=== PATIENT | male | born 1995 | race Hispanic/Latino ===

== ENCOUNTER 2018-07-17 19:39 | Emergency (ER) | payer OTHER ==
[2018-07-18] MEDS: ACETAMINOPHEN TAB 650MG DOSE (2X325MG) PO (00:40)
== END 2018-07-18 02:27 | disposition home or self-care (01) ==
LOC: M ED 19:39
DX: R04.0 Epistaxis (principal); R51 Headache; Z87.828 Personal history of other (healed) physical injury and trauma
CPT/HCPCS: 70450

== ENCOUNTER 2018-08-25 12:46 | Inpatient (IN) | payer OTHER ==
[2018-08-25 13:51] LABS: HEMATOCRIT 46.4 % (42.0-52.0); HEMOGLOBIN 15.8 g/dl (13.5-17.5); MEAN CORPUSCULAR HEMOGLOBIN 29.3 pg (27.0-33.0); MEAN CORPUSCULAR HGB CONC 34.1 g/dl (32.0-36.5); MEAN CORPUSCULAR VOLUME 86.1 fl (80.0-96.0); PLATELET COUNT, AUTOMATED 322 10^3/uL (150-450); RED BLOOD COUNT 5.39 10^6/uL (4.30-6.10); RED CELL DISTRIBUTION WIDTH 13.5 % (11.5-14.5); WHITE BLOOD COUNT 9.4 10^3/uL (4.0-10.0)
[2018-08-25 14:27] LABS: ACETAMINOPHEN LEVEL < 2.0 UG/ML (10.0-30.0); ALBUMIN 4.1 GM/DL (3.2-5.2); ALBUMIN/GLOBULIN RATIO 1.11 (1.00-1.93); ALKALINE PHOSPHATASE 78 U/L (45-117); ALT/SGPT 51 U/L (12-78); ANION GAP 7 MEQ/L (8-16); AST/SGOT 20 U/L (7-37); BILIRUBIN,DIRECT 0.1 MG/DL (0.0-0.2); BILIRUBIN,TOTAL 0.4 MG/DL (0.2-1.0); BLOOD UREA NITROGEN 16 MG/DL (7-18); CALCIUM LEVEL 8.9 MG/DL (8.5-10.1); CARBON DIOXIDE LEVEL 28 MEQ/L (21-32); CHLORIDE LEVEL 104 MEQ/L (98-107); CREATININE FOR GFR 1.06 MG/DL (0.70-1.30); ETHYL ALCOHOL (ETHANOL) < 0.003 % (0.000-0.010); GLOMERULAR FILTRATION RATE > 60.0 (>60); GLUCOSE, FASTING 93 MG/DL (70-100); POTASSIUM SERUM 4.3 MEQ/L (3.5-5.1); SALICYLATE LEVEL < 1.7 MG/DL (5.0-30.0); SODIUM LEVEL 139 MEQ/L (136-145); TOTAL PROTEIN 7.8 GM/DL (6.4-8.2)
[2018-08-25 15:39] LABS: AMPHETAMINES LEVEL URINE NEGATIVE (NEGATIVE); BARBITURATES URINE NEGATIVE (NEGATIVE); BENZODIAZEPINES URINE NEGATIVE (NEGATIVE); CANNABINOIDS URINE NEGATIVE (NEGATIVE); COCAINE METABOLITE URINE NEGATIVE (NEGATIVE); METHADONE URINE NEGATIVE (NEGATIVE); OPIATES URINE NEGATIVE (NEGATIVE); PHENCYCLIDINE URINE NEGATIVE (NEGATIVE)
[2018-08-25] MEDS ORDERED: ACETAMINOPHEN TAB 650MG DOSE (2X325MG) PO (19:00)
[2018-08-25] MEDS ORDERED: traZODone 50 MG TAB PO (19:00)
[2018-08-25] MEDS ORDERED: SODIUM CHLORIDE NASAL 0.65% SPRAY BTL (OCEAN) (19:00)
[2018-08-25] MEDS ORDERED: MAALOX 30 ML SUSP *UDC PO (19:00)
[2018-08-25] MEDS ORDERED: MOM 30ML SUSPENSION UDC PO (19:00)
[2018-08-26] MEDS: buPROPion **XL** TABLET 150MG (WELLBUTRIN XL) PO (09:07)
[2018-08-26] MEDS: ASPIRIN 81 MG CHEW TABLET PO (09:07)
[2018-08-26] MEDS: LORATADINE 10 MG TAB PO (09:07)
[2018-08-26] MEDS: ESCITALOPRAM OXALATE 10 MG TAB (LEXAPRO) PO (12:51)
[2018-08-27] MEDS: ESCITALOPRAM OXALATE 10 MG TAB (LEXAPRO) PO (09:12)
[2018-08-27] MEDS: ASPIRIN 81 MG CHEW TABLET PO (09:12)
[2018-08-27] MEDS: LORATADINE 10 MG TAB PO (09:12)
[2018-08-28] MEDS: ASPIRIN 81 MG CHEW TABLET PO (08:13)
[2018-08-28] MEDS: LORATADINE 10 MG TAB PO (08:13)
[2018-08-28] MEDS: ESCITALOPRAM OXALATE 10 MG TAB (LEXAPRO) PO (08:13)
== END 2018-08-28 10:35 | disposition home or self-care (01) | DRG 881 ==
LOC: M ED 12:46 → M ED INP 18:53 → M PSY 22:31
DX: F32.9 Major depressive disorder, single episode, unspecified (principal); Z79.899 Other long term (current) drug therapy; Z79.82 Long term (current) use of aspirin; Z88.8 Allergy status to other drugs, medicaments and biological substances; F41.9 Anxiety disorder, unspecified; J30.9 Allergic rhinitis, unspecified